=== PATIENT | male | born 1995 | race Caucasian/White ===

== ENCOUNTER 2017-08-04 13:44 | Emergency (ER) | payer BC, OTHER ==
[~2017-08-04] VITALS: Ht 185.4 cm; Wt 100.0 kg
[2017-08-04 13:48] VITALS: TEMP 36.7; Ht 185.4 cm; Wt 100.0 kg
[2017-08-04] MEDS ORDERED: IBUP-1050 PO (14:13)
[2017-08-04] MEDS ORDERED: CYCL10TA6 PO (14:16)
[2017-08-04] MEDS ORDERED: PRED20TA2 PO (15:00)
[2017-08-04 15:16] VITALS: BP 145/75; PULSE 74; O2SAT 99
--- NOTE | 2017-08-04 17:00 | EMERGENCY ROOM VISIT NOTE ---
ED Visit Note First contact with patient: 14:12 Chief Complaint: Back pain. History of Present Illness: Mr. Ocasio is a 22-year-old male who ambulates into the ED accompanied by a male friend complaining of lumbar back pain. Historically patient reports he has a herniated disc at the L4-L5 level that was diagnosed by a back surgeon in [place]. Patient reports on Monday, 2 days ago, he slipped while in the shower. He did not fall to the ground but twisted his back. Since that time he has been having lumbar back pain. Currently he describes his pain as a sharp sensation. He places his discomfort at the L4-L5 level. He rates his discomfort 8/10. His pain worsens with all movement of the back and minimally with palpation. He has not identified any alleviating factors related to the pain. He reports he has been using ibuprofen without relief of his discomfort. Associated with his pain intermittently he reports have radiation of his pain into his left buttocks and intermittently he reports he has a tingling sensation throughout the left lower leg. He denies fevers, chills, sweats, abdominal pain, nausea, vomiting, urinary symptoms, hematuria, diarrhea, constipation, rectal bleeding, black/tarry stools , bowel and bladder dysfunction, genital paresthesias, leg weakness. Review of Systems: As noted above in history of present illness. 8 body systems were reviewed and found to be negative as noted above. Past Medical History: As previously noted. Current Medications: As previously noted. Allergies to Medications: Patient denies. Social History: Patient is currently employed; he feels safe in his home environment; he denies use admits to alcohol use. Physical Examination: Vital Signs: Date Time Temp Pulse Resp B/P (MAP) Pulse Ox O2 Delivery O2 Flow Rate FiO2 08/04/17 15:16 74 18 145/75 99 08/04/17 13:48 36.7 89 18 139/85 98 Room Air GENERAL: 22-year-old male in mild to moderate distress due to pain, nontoxic- appearing, afebrile and hemodynamically stable. NEUROLOGICAL: Awake, alert and oriented to person, place and time. Answering questions appropriately and following commands. Normal gait. Good hand eye coordination. SKIN: Warm, dry and pink. No soft tissue trauma noted. BACK: No tenderness over the bony cervical and thoracic spine. Moderate tenderness over the bony lumbar spine in the area of L4-L5 without bony deformity, bony crepitus, swelling or ecchymosis. Minimal tenderness in the bilateral paraspinous muscle without palpable spasm. Decreased range of motion in all movements at the waist due to pain. Negative straight leg raise test. No CVA tenderness. THORAX: Lungs sounds are clear to auscultation and equal bilaterally with symmetrical chest wall. ABDOMEN: Flat, soft and nontender. Positive bowel sounds in all quadrants. No guarding, rigidity or organomegaly. LOWER EXTREMITIES: No gross bony deformity. No shortening or malrotation. No tenderness in the hips, thighs, knees, lower legs or ankles. 5/5 muscle strength in all movements of the hips, knees and ankles. 2+ patellar and Achilles deep tendon reflexes intact and equal bilaterally. Throughout the extremity the skin was warm and pink and capillary refill is brisk. He was able to distinguish light sensations through all dermatomes. No calf tenderness or cords. ED Course: Patient is assessed as noted above. Patient's medication list was reviewed. I had a lengthy conversation with the patient on the use of MRI and his current situation. I informed him that this hospital is down to 1 MRI at this time and he is not having any neurovascular compromise so I would not be able to offer him an MRI emergently. Patient was given 60 mg of prednisone by mouth. Patient was educated about today's findings and instructed on his treatment plan ; he verbalized understanding and agreement with this plan. Clinical Impression: Lumbar back pain with intermittent radicular symptoms affecting the right lower extremity. Disposition: Patient discharged home in stable condition accompanied by male friend; prior to departure he was reassessed and subjectively reported he was feeling the same and rated his discomfort 8/10. Plan: Patient was encouraged alternate ibuprofen and acetaminophen every 3 hours for pain. Patient was prescribed prednisone 60 mg once a day for 4 additional days. Ice and heat therapies were discussed with the patient. Proper lifting and moving techniques were discussed with the patient. Patient was encouraged to follow-up with his back specialist when he returns to [place] which he believes is early next week for definitive care and treatment. Patient was encouraged to return to the ED for worsening pain, worsening leg tingling, leg weakness, genital paresthesias, bowel and bladder dysfunction, fevers or any new/concerning symptoms.
== END 2017-08-04 15:15 | disposition home or self-care (01) ==
LOC: C.EDB 13:47 → C.EDD 15:15
DX: M54.16 Radiculopathy, lumbar region (principal)